=== PATIENT | female | born 1995 | race Caucasian/White ===

== ENCOUNTER → 2018-10-20 07:49 | Outpatient (CLI) | payer OTHER, SELFPAY ==
--- NOTE | 2018-10-20 | DI.US.S_ITS ---
PROCEDURE: US OB <= 14 WEEKS FETUS INDICATIONS: SIZE AND DATES OUTSIDE/PRIOR DATING DATA: Last menstrual period (LMP): 08/31/2018. LMP-based estimated date of delivery ([facility]): 06/07/1019. First dating scan (date and location): 10/20/2018. Estimated date of delivery ([facility]) from first dating scan: 06/12/2019. TECHNIQUE: Real-time scanning was performed of the fetus and maternal pelvic organs, with image documentation. Endovaginal scanning was also performed to better visualize the fetus and maternal ovaries. COMPARISON: None. FINDINGS: Embryo: There is an intrauterine gestational sac with a pole. Based on the crown-rump length, the estimated gestational age is 6 weeks 3 days. cardiac activity is present with heart rate 116 bpm. A yolk sac is present. Measurement variability in dating: +/- 4 weeks by LMP, +/- 7 days by mean sac diameter (use before 6 weeks gestation if crown-rump length not able to be measured), +/- 5 days by crown-rump length (up to 8 weeks 6 days gestation), +/- 7 days by crown-rump length (up to 13 weeks 6 days gestation). Maternal organs: A corpus atelectasis is noted in the left ovary measuring 2.5 x 1.5 x 2.3 cm. Right ovaries not visualized due to overlying bowel gas. Limited images through the kidneys demonstrate no hydronephrosis. There is a complex cyst in the left kidney measuring 2.5 x 1.4 x 1.7 cm. IMPRESSION: 1. A single living intrauterine gestation with the estimated gestational age of 6 weeks 3 days 2. A corpus luteal cyst in the left ovary. Right ovary is not visualized. 3. A 2.5 x 1.4 x 1.7 cm complex cyst in the maternal left kidney. Dictated by: Jagdeep Ko M.D. on 10/20/2018 at 11:20 Approved by: Jagdeep Ko M.D. on 10/20/2018 at 11:28
== END ==
PROVIDERS: PCP Obstetrics & Gynecology; Visit Provider Nurse Practitioner Obstetrics & Gynecology
DX: O34.81 Maternal care for other abnormalities of pelvic organs, first trimester (principal); N83.12 Corpus luteum cyst of left ovary; O26.831 Pregnancy related renal disease, first trimester; N28.1 Cyst of kidney, acquired; Z3A.01 Less than 8 weeks gestation of pregnancy
CPT/HCPCS: 76801; 76817

== ENCOUNTER → 2019-01-11 10:23 | Outpatient (CLI) | payer OTHER, SELFPAY ==
--- NOTE | 2019-01-11 | DI.US.S_ITS ---
PROCEDURE: US OB >= 14 WEEKS FETUS INDICATIONS: 20 WEEK ANATOMICAL SURVEY OUTSIDE/PRIOR DATING DATA: Last menstrual period (LMP): 08/31/18. LMP-based estimated date of delivery ([facility]): 06/07/19. First dating scan (date and location): 10/20/18. Estimated date of delivery ([facility]) from first dating scan: 06/12/19. TECHNIQUE: Real-time scanning was performed of the fetus, with image documentation and biometric measurements. Endovaginal scanning: Not performed COMPARISON: None. FINDINGS: General: A single living intrauterine gestation is present. Presentation: Vertex. Placenta: Placental position is anterior, without previa. Amniotic fluid index: 13.0 cm, normal range is 5-24 cm. heart rate: 140 beats per minute. Maternal cervical canal: 3.8 cm long. Normal lower limit is 2.5 cm. biometrics: Biparietal diameter: 3.9 cm, 17 weeks 5 days Head circumference: 15.4 cm, 18 weeks 3 days Abdominal circumference: 13.0 cm, 18 weeks 3 days Femur length: 2.8 cm, 18 weeks 4 days Estimated gestational age from initial scan: 18 weeks 2 days Composite gestational age from present scan: 18 weeks 2 days Estimated weight and percentile: 243 g, 59th percentile Measurement variability for biometric dating: +/- 7 days from 14 weeks to 15 weeks 6 days gestation, +/- 10 days from 16 weeks to 21 weeks 6 days gestation, +/- 2 weeks from 22 weeks to 27 weeks 6 days gestation, +/- 3 weeks for 28 weeks gestation or later. weight reference: 4500 g or EFW >90/95% is considered macrosomia or large for gestational age. EFW <10% is small for gestational age. EFW 5% or less is considered intra-uterine growth restriction. Anatomic survey: Neuro: Ventricles are non-dilated at less than 10 mm. incidental 8 mm choroid plexus cyst. Cisterna magna is normal at 3-11 mm. Cerebellum is normal in size and morphology. Nuchal skin fold: Normal at less than 6 mm between 14-21 weeks gestational age. Face: Nose and lips, facial profile are normal. Spine: No evidence for spina bifida. Heart: 4-chambered heart is present, with normal ventricular outflow tracts. Diaphragm: Diaphragm is intact. Stomach: Left-sided stomach is present. Kidneys: No hydronephrosis. Normal is less than 5 mm in 2nd trimester, less than 7 mm in 3rd trimester. Cord: 3-vessel cord has orthotopic insertion. Bladder: Normal in size. Extremities: All 4 extremities identified. IMPRESSION: Single living intrauterine fetus in vertex presentation demonstrating expected interval growth. Incidentally noted choroid plexus cyst, which in isolation is a nonspecific finding. Otherwise, normal anatomic survey. Dictated by: Helio Hernandes M.D. on 01/11/2019 at 17:13 Approved by: Helio Hernandes M.D. on 01/11/2019 at 17:17
== END ==
PROVIDERS: Referring Provider Obstetrics & Gynecology; Visit Provider Registered Nurse
DX: Z36.89 Encounter for other specified antenatal screening (principal); Z3A.18 18 weeks gestation of pregnancy
CPT/HCPCS: 76811